=== PATIENT | male | born 1960 | race Caucasian/White ===

== ENCOUNTER 2020-06-08 10:14 | Outpatient (CLI) | payer OTHER, SELFPAY ==
--- NOTE | ~2020-06-08 | XR_ITS ---
EXAMINATION: XR chest 2V 06/08/2020 14:55 INDICATION: Bronchitis. Dyspnea. PROCEDURE: 2 view chest COMPARISON: 02/27/2014 FINDINGS: The lungs are clear. The cardiomediastinal silhouette is within normal limits. There are no pleural effusions. There is no pneumothorax suspected. IMPRESSION: 1: NO ACUTE CARDIOPULMONARY DISEASE. Reviewed, dictated and finalized at location A.
[2020-06-08 11:09] LABS: SARS-CoV-2 RNA PCR Negative (Negative)
[2020-06-08 14:45] LABS: Influenza A QL RT-PCR Negative (Negative); Influenza B QL RT-PCR Negative (Negative)
[2020-06-08 14:47] LABS: Basophils Absolute Auto 0.06 K/mm3 (0.00-0.10); Basophils Percent Auto 0.7 % (0.0-1.0); Eosinophils Absolute Auto 0.15 K/mm3 (0.02-0.50); Eosinophils Percent Auto 1.7 % (1.0-6.0); Hematocrit 43.3 % (40.0-54.0); Hemoglobin 14.7 g/dL (14.0-18.0); Immature Granulocyte Absolute 0.02 K/mm3 (0.00-0.00); Immature Granulocyte Percent A 0.2 % (0.0-0.0); Lymphocytes Absolute Auto 2.01 K/mm3 (1.10-4.50); Lymphocytes Percent Auto 22.2 % (18.0-42.0); Mean Corpuscular HGB Conc 33.9 g/dL (32.0-36.0); Mean Corpuscular Hemoglobin 32.4 pg (27.0-31.0); Mean Corpuscular Volume 95.4 fL (78.0-102.0); Mean Platelet Volume 8.9 fl (8.7-11.0); Monocytes Absolute Auto 0.88 K/mm3 (0.10-0.90); Monocytes Percent Auto 9.7 % (2.0-11.0); Neutrophils Percent Auto 65.5 % (50.0-70.0); Platelet Count Result 186 K/mm3 (150-420); Red Blood Count 4.54 M/mm3 (4.70-6.10); White Blood Count 9.1 K/mm3 (4.8-10.8)
[2020-06-08 15:02] LABS: Alanine Aminotransferase 26 U/L (16-63); Albumin Level 3.8 g/dL (3.4-5.0); Alkaline Phosphatase 92 U/L (46-116); Anion Gap 5 mmol/L (8-16); Aspartate Amino Transferase 14 U/L (15-37); Bilirubin,Total 0.5 mg/dL (0.00-1.00); Blood Urea Nitrogen 21 mg/dL (7-18); Calcium 9.3 mg/dL (8.5-10.1); Carbon Dioxide 30 mmol/L (21-32); Chloride 101 mmol/L (98-108); Estimated Glomerular Filt Rate 58; Glucose 101 mg/dL (70-99); Osmolality Calculated 285 mOsm/kg (285-295); Sodium 136 mmol/L (136-145); Total Protein 7.7 g/dL (6.4-8.2)
== END 2020-06-08 10:15 | disposition home or self-care (01) ==
PROVIDERS: PCP Internal Medicine; Visit Provider Internal Medicine
DX: J06.9 Acute upper respiratory infection, unspecified (principal); J40 Bronchitis, not specified as acute or chronic; R05 Cough; Z20.822 Contact with and (suspected) exposure to COVID-19
CPT/HCPCS: 36415; 71046; 80053; 85025; 87502; C9803; U0003; U0005

== ENCOUNTER 2020-06-15 10:46 | Outpatient (CLI) | payer OTHER, SELFPAY ==
--- NOTE | ~2020-06-15 | XR_ITS ---
EXAMINATION: XR chest 2V EXAM DATE: 06/15/2020 11:02 INDICATION: COPD- congestion, cough sob x 1 week, smoker TECHNIQUE: Frontal and lateral projections of the chest obtained and reviewed. There is no prior katherin dy for comparison. FINDINGS: The lungs are clear. There are no pleural effusions. The cardiomediastinal silhouette is within normal limits. There is no pneumothorax suspected. The bones and soft tissues are unremarkab le. IMPRESSION: No acute cardiopulmonary findings. Reviewed, dictated and finalized at location A.
== END 2020-06-15 10:47 | disposition home or self-care (01) ==
LOC: CHSIMG 10:48
PROVIDERS: PCP Internal Medicine; Visit Provider Internal Medicine
DX: J44.1 Chronic obstructive pulmonary disease with (acute) exacerbation (principal)
CPT/HCPCS: 71046

== ENCOUNTER 2020-07-05 15:37 | Outpatient (CLI) | payer OTHER, SELFPAY ==
--- NOTE | ~2020-07-05 | XR_ITS ---
XR hip RT min 2V DATE: 07/05/2020 16:19 INDICATION: Right lateral upper hip pain. Low back pain. TECHNIQUE: AP, lateral views COMPARISON: None FINDINGS: There is some chronic soft tissue calcification adjacent to the greater trochanter. There is mild right hip osteoarthritis. No fracture or dislocation, avascular necrosis or bone destruction is evident. The pubic symphysis and sacroiliac joints appear intact. IMPRESSION: Mild right hip osteoarthritis Reviewed, dictated and finalized at location B.
--- NOTE | ~2020-07-05 | XR_ITS ---
XR lumbar spine 2-3V DATE: 07/05/2020 16:19 INDICATION: Low back pain, right lateral upper hip pain TECHNIQUE: AP, lateral, coned lateral lumbosacral views COMPARISON: None FINDINGS: There is mild levoscoliosis of the thoracolumbar spine. Diffuse osteopenia. There is mild multilevel degenerative disc disease as well as moderate spurring of the lumbar spine. There is prominent degenerative change of the apophyseal joints with grade 1 anterolisthesis at L4-5. No fracture or bone destruction is detected. The lower thoracic and lumbar pedicles are intact. Normal sacroiliac joints. IMPRESSION: Mild levoscoliosis Degenerative changes Reviewed, dictated and finalized at location B.
[2020-07-05 16:44] LABS: Alanine Aminotransferase 28 U/L (16-63); Albumin Level 3.5 g/dL (3.4-5.0); Alkaline Phosphatase 81 U/L (46-116); Anion Gap 9 mmol/L (8-16); Aspartate Amino Transferase 13 U/L (15-37); Bilirubin,Total 0.3 mg/dL (0.00-1.00); Blood Urea Nitrogen 18 mg/dL (7-18); Calcium 8.9 mg/dL (8.5-10.1); Carbon Dioxide 28 mmol/L (21-32); Chloride 103 mmol/L (98-108); Cholesterol 240 mg/dL (0-200); Estimated Glomerular Filt Rate 57; Glucose 91 mg/dL (70-99); HDL Direct 55 mg/dL (40-60); LDL Cholesterol Calculated 169 mg/dL (<130); Osmolality Calculated 291 mOsm/kg (285-295); Potassium 4.3 mmol/L (3.5-5.1); Prostate Specific Antigen 1.1 ng/mL (< OR = 4.0); Sodium 140 mmol/L (136-145); Total Protein 6.7 g/dL (6.4-8.2); Triglycerides 80 mg/dL (0-150)
[2020-07-05 16:46] LABS: Hemoglobin A1C 6.3 % (<5.7)
== END 2020-07-05 15:38 | disposition home or self-care (01) ==
LOC: CHSIMG 15:39
PROVIDERS: PCP Internal Medicine; Visit Provider Internal Medicine
DX: I73.9 Peripheral vascular disease, unspecified (principal); M25.551 Pain in right hip; M54.5 Low back pain; R73.01 Impaired fasting glucose; Z00.00 Encounter for general adult medical examination without abnormal findings; E78.2 Mixed hyperlipidemia
CPT/HCPCS: 36415; 72100; 73502; 80053; 80061; 83036; 84153; G0103

== ENCOUNTER 2020-07-09 09:27 | Outpatient (CLI) | payer OTHER, SELFPAY ==
--- NOTE | ~2020-07-09 | US_ITS ---
EXAMINATION: US arterial ankle brachial ind DATE: 07/09/2020 10:00 INDICATION: Peripheral arterial occlusive disease to the lower limbs TECHNIQUE: Segmental pressures and plethysmographic and Doppler waveforms of the brachial and lower e xtremity arteries were obtained. COMPARISON: None. FINDINGS: Right and left brachial artery pressures of 123 mm Hg and 136 mm Hg, respectively, are concordant (no rmal difference <= 30 mmHg). The right ankle-brachial index (ABDULAZIZ) is 0.65 (normal >= 0.9-1.0). The right great toe-brachial index (TBI) is 0.30 (normal >= 0.65). Arterial Doppler waveforms are biphasic with brisk systolic upstrokes at both the right posterior tibial and dorsalis pedis arteries. The left ABDULAZIZ is 0.83. The left TBI is 0.45. Arterial Doppler waveforms are biphasic with brisk systol ic upstrokes at both the left posterior tibial and dorsalis pedis arteries. IMPRESSION: 1. Bilateral arterial occlusive disease with moderately decreased right and mildly decreased left ABDULAZIZ s and TBIs. Reviewed, dictated and finalized at location A. IMPRESSION: 1. Bilateral arterial occlusive disease with moderately decreased right and mil dly decreased left ABIs and TBIs.
== END 2020-07-09 09:28 | disposition home or self-care (01) ==
LOC: CHSIMG 09:28
PROVIDERS: PCP Internal Medicine; Visit Provider Internal Medicine
DX: I73.9 Peripheral vascular disease, unspecified (principal); M25.551 Pain in right hip; M54.5 Low back pain
CPT/HCPCS: 93922

== ENCOUNTER 2020-07-18 07:53 | Outpatient (CLI) | payer OTHER, SELFPAY ==
--- NOTE | ~2020-07-18 | CT_ITS ---
EXAMINATION: CT lung screening DATE: 07/18/2020 08:49 INDICATION: Personal history of tobacco use, PAD, Iliac Stenosis SMOKER SCREENING,CHRONIC COUGH TECHNIQUE: Computed tomography (CT) of the chest was performed without intravenous contrast. Addition al 3D reconstructions utilizing coronal maximum intensity projection (MIP) were performed. Automated exposure control and iterative reconstruction technique were employed. The dose-length product was 19 5.75 mGy-cm. COMPARISON: None FINDINGS: No suspicious pulmonary nodules, pneumonia, pulmonary edema or other pulmonary infiltrates. There is however diffuse mild bronchial wall thickening consistent with bronchitis. No pleural effusion. Heart size is normal. Atherosclerotic coronary artery calcific lesion. Mild aortic valve calcification. No pericardial effusion. Thoracic aorta is normal in caliber. No pathologically enlarged thoracic lymph adenopathy. Subcutaneous presternal 4.7 x 3.6 x 2.8 cm fluid attenuation likely epidermoid cyst. 1.8 x 1.2 cm low-attenuation right adrenal adenoma. Moderate thoracic spondylosis. Chronic mild anterior wedging at T6, T11 and T12. Multiple Schmorl's nodes in the mid to lower thoracic spine. IMPRESSION: 1. Lung-RADS category 1: Negative. Continue annual screening with noncontrast low-dose chest CT in 12 months. Reviewed, dictated and finalized at location A. IMPRESSION: 1. Lung-RADS category 1: Negative. Continue annual screening with noncontrast l ow-dose chest CT in 12 months.
--- NOTE | ~2020-07-18 | CT_ITS ---
EXAMINATION: CTA abd aorta runoff EXAM DATE: 07/18/2020 08:50 INDICATION: Peripheral arterial disease, iliac stenosis. History of left-sided leg artery surgery. TECHNIQUE: Spiral CTA abd aorta runoff was performed following intravenous injection of 180 mL Omnipa que 350. Axial, coronal and sagittal images were reviewed. The dose-length product (DLP) for this e xamination was 1629.33 mGy-cm. The exposure was tailored according to patient size (auto mA exposure control), and iterative reconstruction (ASIR) was used as additional dose reduction technique. Corre lation is made to recent noncontrast chest CT. FINDINGS: VASCULATURE: Mild scattered abdominal arterial sclerosis with the MARGARET, renal arteries, celiac and SMA widely patent. No abdominal aortic aneurysm or dissection. Iliac and common femoral arteries patent bilaterally. Bilateral leg varicose veins. Right side: There is completely occluded mid superficial femoral artery for approximately 8 cm segmen t, with reconstitution distally through collateralization. Anterior tibial artery is the dominant sup ply to the foot, with the posterior tibial identified as patent until the ankle where it is occluded. Peroneal identified to the ankle. Left side: Completely occluded left mid superficial femoral artery, also for about 8 cm in length wit h reconstitution distally and three-vessel runoff to the foot. INCIDENTAL FINDINGS: Small umbilical fat-containing hernia. There is right adrenal 1.9 cm adenoma, lo w density confirmed on prior noncontrast chest CT. Bilateral distal femoral metaphyseal bone infarcti ons or enchondromas. IMPRESSION: 1. Completely occluded mid superficial femoral arteries bilaterally. 2. Occluded right posterior tibial artery at the ankle. 3. Three-vessel runoff on the left. Reviewed, dictated and finalized at location B.
== END 2020-07-18 07:54 | disposition home or self-care (01) ==
LOC: CHSIMG 07:57
PROVIDERS: PCP Internal Medicine; Visit Provider Internal Medicine
DX: I73.9 Peripheral vascular disease, unspecified (principal); I77.1 Stricture of artery; Z12.2 Encounter for screening for malignant neoplasm of respiratory organs; Z87.891 Personal history of nicotine dependence
CPT/HCPCS: 71271; 75635; Q9967

== ENCOUNTER 2020-07-23 16:54 | Outpatient (RCR) | payer OTHER, SELFPAY ==
--- NOTE | 2020-07-24 07:22 | PTOPEVAL ---
Thank you for referring Olivier Munguia to [facility].? The patient is scheduled to be seen for therapy? ____x/week for ___ weeks. Please review, sign, date and return this plan of care DARIUSZ. I agree with and certify that the following plan of care is medically necessary. Referring Physician Date Admitting Provider: Attending Provider: Aneesh Spicer MD Referring Provider: *PT Outpatient Evaluation Start: 07/23/20 16:41 Freq: Status: Active Protocol: Document 07/23/20 17:00 [facility] (Rec: 07/23/20 18:11 [facility] [id number]) Evaluation Information Problem Diagnosis Lumbar stenosis/ LBP Onset 07/11/20 Additional Evaluation Detail Oswestry- 20% functional mobility impairments Subjective Information Olivier Munguia is a 59 year old Query Text:As Reported By Patient/ male who [facility] with R post hip and LBP . Started 1.5 months ago insidious onset. X-rays, sonogram, and CT scan done here. Does not know results. Sitting feels better, pain increases with walking. No reports of numbness or tingling. Reports he may have vascular disease causing the pain per his MD. Is attempting to schedule appointment soon. Prior Level of Function Comments Additional Prior Level of Function Works in inventrory control, Comments lots of kneeling; likes to take his dog, Lata, for walks. Pain Assessment Timing of Pain Assessment Timing of Pain Assessment Assessment Pain Scale Pain Scale Used Numeric (1 - 10) Self Report Pain Assessment Lower Back Reported Pain Level 2 Pain Description Dull Lowest Pain Intensity 2 Greatest Pain Intensity 7 Pain Score Pain Score 2: Self Report Interventions Used Interventions Used By Clinicians Activity or ADL's,Electrical Stimulation,Exercise,Heat Cervical and Lumbar ROM Lumbar ROM Lumbar Flexion Active [place] Query Text:Hands to: Lumbar Extension (0-40) 10 Query Text:Active in Degrees Lumbar Lateral Flexion Right (0-40) 20 Query Text:Active in Degrees Lumbar Lateral Flexion Left (0-40) 20 Query Text:Active in Degrees Lateral Rotation Right (0-45) 20 Query Text:Active in Degrees Lateral Rotation Left (0-45) 20 Query Text:Active in Degrees
--- NOTE | 2020-07-30 17:59 | PCPTNOTE ---
On 07/30/20, the student, [Ada Jerome, SPTJo ], provided care and completed [employer] documentation on this patient. I have reviewed the student's documentation and agree with the findings. Nicolette Cabrera, EXECUTIVE MEETING MANAGER
--- NOTE | 2020-07-31 09:07 | PCPTNOTE ---
On 07/31/20, the student, [Ada DEGROOT ], provided care and completed [employer] documentation on this patient. I have reviewed the student's documentation and agree with the findings.
--- NOTE | 2020-08-02 06:55 | PCPTNOTE ---
On 08/01/20, the student, [Ada Jerome, [facility] provided care and completed [place] documentation on this patient. I have reviewed the student's documentation and agree with the findings.
--- NOTE | 2020-08-13 17:38 | PCPTNOTE ---
On 08/13/20, the student, [Ada Jerome, [facility] provided care and completed [employer] documentation on this patient. I have reviewed the student's documentation and agree with the findings.
== END 2020-08-16 23:59 | disposition home or self-care (01) ==
LOC: CHSPT 16:54
PROVIDERS: PCP Internal Medicine; Visit Provider Internal Medicine
DX: M25.551 Pain in right hip (principal); M54.5 Low back pain
CPT/HCPCS: 97014; 97110; 97140; 97161; 97530; G0283

== ENCOUNTER 2022-06-18 18:28 | Outpatient (CLI) | payer OTHER, SELFPAY ==
--- NOTE | ~2022-06-18 | XR_ITS ---
Right Knee Technique: AP, lateral, and sunrise views were obtained. Clinical History: Pain Findings: No fracture or dislocation is seen. There is an intramedullary lesion with serpiginous scle rotic margins at the mid to distal femoral shaft, measuring at least 7.9 cm in length. There is mild to moderate degenerative change at the patellofemoral compartment. Medial and lateral compartments ar e preserved. Soft tissues are unremarkable. No joint effusion is seen. Impression: Moderate degenerative change at the patellofemoral compartment. Intramedullary lesion at the mid to distal femoral shaft as noted above. This is most suggestive of b one infarct. Chondroid lesion could be a potential alternative consideration. If there is felt to be pain referable to this lesion clinically, then consider MR for further evaluation. Reviewed, dictated and finalized at [facility]. Impression: Moderate degenerative change at the patellofemoral compartment. Intramedullary lesion at the mid to distal femoral shaft as noted above. This i s most suggestive of bone infarct. Chondroid lesion could be a potential altern ative consideration. If there is felt to be pain referable to this lesion clini jing, then consider MR for further evaluation.
== END 2022-06-18 18:29 | disposition home or self-care (01) ==
PROVIDERS: PCP Internal Medicine; Visit Provider Internal Medicine
DX: M25.561 Pain in right knee (principal); M89.9 Disorder of bone, unspecified
CPT/HCPCS: 73564

== ENCOUNTER 2022-06-26 14:55 | Outpatient (CLI) | payer OTHER, SELFPAY ==
--- NOTE | ~2022-06-26 | CT_ITS ---
EXAMINATION: CT lung screening DATE: 06/26/2022 15:17 INDICATION: Chronic cough. Screening for lung cancer. History of smoking. TECHNIQUE: Computed tomography (CT) of the chest was performed without intravenous contrast. The dose -length product was 217.12 mGy-cm. Automated exposure control and iterative reconstruction technique were employed. COMPARISON: CT dated 07/18/2020 FINDINGS: There is a 3.8 cm low-density mass in the presternal location of the chest wall, likely javid ign epidermoid cyst or sebaceous cyst. No thoracic lymphadenopathy. There is atherosclerosis of the a joanna and coronary arteries. Small hiatal hernia. No significant pleural or pericardial effusion. Stab le 1.8 cm right adrenal adenoma. No endobronchial lesions. Mild chronic bronchial wall thickening unc hanged, likely chronic bronchitis. No endobronchial lesions. No pneumothorax. No focal airspace conso lidation. Mild emphysema. No pneumothorax. Moderate thoracic spondylosis with multiple chronic wedge compression deformities of the mid and lower thoracic spine which appear chronic. IMPRESSION: 1. Lung-RADS category 1: Negative. Continue annual screening with noncontrast low-dose chest CT in 12 months. Reviewed, dictated and finalized at location L. IMPRESSION: 1. Lung-RADS category 1: Negative. Continue annual screening with noncontrast l ow-dose chest CT in 12 months.
== END 2022-06-26 14:56 | disposition home or self-care (01) ==
LOC: CHSIMG 14:57
PROVIDERS: PCP Internal Medicine; Visit Provider Internal Medicine
DX: Z12.2 Encounter for screening for malignant neoplasm of respiratory organs (principal); Z87.891 Personal history of nicotine dependence
CPT/HCPCS: 71271

== ENCOUNTER 2022-07-12 07:41 | Outpatient (CLI) | payer OTHER, SELFPAY ==
--- NOTE | ~2022-07-12 | MR_ITS ---
EXAMINATION: MR femur RT wo con DATE: 07/12/2022 09:38 INDICATION: Right femur and knee pain. TECHNIQUE: Magnetic resonance imaging (MRI) of the right femur was performed without intravenous cont rast. COMPARISON: Right knee radiographs 06/18/2022 FINDINGS: There is lateral subluxation of patella. In the distal femoral metadiaphysis, there is a 7. 5 cm intramedullary lesion of increased T2-weighted signal intensity surrounded by sclerosis with a s erpiginous border. No bone expansion or endosteal scalloping. There is mild right knee osteoarthritis . There is a small right knee joint effusion. There is mild prepatellar and superficial infrapatellar bursitis. The musculature is normal. IMPRESSION: 1. Intramedullary lesion in distal femoral metadiaphysis, which may be an enchondroma or osteonecrosi s. 2. Mild right knee osteoarthritis. 3. Small right knee joint effusion. Reviewed, dictated and finalized at location A. IMPRESSION: 1. Intramedullary lesion in distal femoral metadiaphysis, which may be an encho ndroma or osteonecrosis. 2. Mild right knee osteoarthritis. 3. Small right knee joint effusion.
== END 2022-07-12 07:42 | disposition home or self-care (01) ==
LOC: CHSIMG 07:45
PROVIDERS: PCP Internal Medicine; Visit Provider Internal Medicine
DX: R93.6 Abnormal findings on diagnostic imaging of limbs (principal); M89.9 Disorder of bone, unspecified; M17.11 Unilateral primary osteoarthritis, right knee; M25.461 Effusion, right knee
CPT/HCPCS: 73718

== ENCOUNTER 2022-11-26 15:45 | Outpatient (CLI) | payer OTHER, SELFPAY ==
--- NOTE | ~2022-11-26 | XR_ITS ---
EXAMINATION: XR chest 2V 11/26/2022 16:02 INDICATION: Smoker. Shortness of breath. COPD. PROCEDURE: 2 view chest COMPARISON: 06/15/2020 FINDINGS: The lungs are clear. The cardiomediastinal silhouette is within normal limits. There are no pleural effusions. There is no pneumothorax suspected. IMPRESSION: 1: NO ACUTE CARDIOPULMONARY DISEASE. Reviewed, dictated and finalized at location B.
== END 2022-11-26 15:46 | disposition home or self-care (01) ==
PROVIDERS: PCP Internal Medicine; Visit Provider Internal Medicine
DX: J44.9 Chronic obstructive pulmonary disease, unspecified (principal)
CPT/HCPCS: 71046

== ENCOUNTER 2023-12-10 09:36 | Outpatient (CLI) | payer OTHER, SELFPAY ==
[2023-12-10 10:06] LABS: Basophils Absolute Auto 0.06 K/mm3 (0.00-0.10); Basophils Percent Auto 0.9 % (0.0-1.0); Eosinophils Absolute Auto 0.07 K/mm3 (0.02-0.50); Hematocrit 43.8 % (40.0-54.0); Hemoglobin 14.9 g/dL (14.0-18.0); Immature Granulocyte Absolute 0.02 K/mm3 (0.00-0.00); Immature Granulocyte Percent A 0.3 % (0.0-0.0); Lymphocytes Absolute Auto 2.18 K/mm3 (1.10-4.50); Lymphocytes Percent Auto 31.5 % (18.0-42.0); Mean Corpuscular Hemoglobin 31.8 pg (27.0-31.0); Mean Corpuscular Volume 93.4 fL (78.0-102.0); Mean Platelet Volume 8.7 fl (8.7-11.0); Monocytes Absolute Auto 0.49 K/mm3 (0.10-0.90); Monocytes Percent Auto 7.1 % (2.0-11.0); Neutrophils Absolute Auto 4.09 K/mm3 (1.70-7.20); Neutrophils Percent Auto 59.2 % (50.0-70.0); Platelet Count Result 200 K/mm3 (150-420); Red Blood Count 4.69 M/mm3 (4.70-6.10); White Blood Count 6.9 K/mm3 (4.8-10.8)
[2023-12-10 10:11] LABS: Add Urine Microscopic? NO; Appearance Urine Clear (Clear); Bilirubin Urine Negative (Negative); Blood Urine Trace-intact (Negative); Color Urine Light Yellow (Yellow); Glucose Urine UA Negative (Negative); Ketones Urine Negative (Negative); Leukocyte Esterase Ur Negative LEU/UL (Negative); Nitrate Urine Negative (Negative); Protein Urine Negative (Negative); Urobilinogen Urine 0.2 mg/dL (0.2-1.0)
[2023-12-10 10:53] LABS: Alanine Aminotransferase 30 U/L (16-63); Albumin Level 3.5 g/dL (3.4-5.0); Alkaline Phosphatase 98 U/L (46-116); Anion Gap 9 mmol/L (4-12); Aspartate Amino Transferase 15 U/L (15-37); Bilirubin,Total 0.4 mg/dL (0.00-1.00); Blood Urea Nitrogen 16 mg/dL (7-18); Calcium 8.9 mg/dL (8.5-10.1); Carbon Dioxide 29 mmol/L (21-32); Chloride 103 mmol/L (98-108); Cholesterol 181 mg/dL (0-200); Creatine Kinase 180 U/L (39-308); Estimated Glomerular Filt Rate > 60; Glucose 133 mg/dL (70-99); HDL Direct 55 mg/dL (40-60); LDL Cholesterol Calculated 104 mg/dL (<130); Osmolality Calculated 295 mOsm/kg (285-295); Potassium 4.3 mmol/L (3.5-5.1); Prostate Specific Antigen 1.6 ng/mL (< OR = 4.0); Sodium 141 mmol/L (136-145); Total Protein 6.8 g/dL (6.4-8.2); Triglycerides 108 mg/dL (0-150)
== END 2023-12-10 09:37 | disposition home or self-care (01) ==
PROVIDERS: PCP Internal Medicine; Visit Provider Internal Medicine
DX: Z00.00 Encounter for general adult medical examination without abnormal findings (principal); Z12.5 Encounter for screening for malignant neoplasm of prostate
CPT/HCPCS: 36415; 80053; 80061; 81003; 82550; 84153; 85025; G0103

== ENCOUNTER 2023-12-16 11:16 | Outpatient (CLI) | payer OTHER, SELFPAY ==
--- NOTE | ~2023-12-16 | CT_ITS ---
CT Scan of the Chest without Contrast: Clinical Indication: Lung cancer screening, nicotine dependence Technique: Contiguous sections were acquired throughout the chest without intravenous contrast. Dose reduction technique was used on this scan by utilizing automated exposure control and iterative recon struction technique. The dose-length product (DLP) was 307.86 mGy-cm. COMPARISON: 06/26/2022 Findings: There is no evidence of any significant mediastinal, hilar or axillary lymphadenopathy. The mediastin al soft tissues appear normal. There is no evidence of pleural or pericardial effusion. The lungs are clear. No pulmonary nodules or infiltrates are noted. Images through the upper abdomen reveal stable right adrenal adenoma. Stable large probable sebaceous cyst at the anterior midline superficial to the sternum.. Impression: Lung RADS 1: Negative. 12 month follow-up screening CT advised. Reviewed, dictated and finalized at [facility]. Impression: Lung RADS 1: Negative. 12 month follow-up screening CT advised.
== END 2023-12-16 11:17 | disposition home or self-care (01) ==
LOC: CHSIMG 11:19
PROVIDERS: PCP Internal Medicine; Visit Provider Internal Medicine
DX: Z12.2 Encounter for screening for malignant neoplasm of respiratory organs (principal); Z87.891 Personal history of nicotine dependence
CPT/HCPCS: 71271

== ENCOUNTER 2024-11-27 19:49 | Emergency (ER) | payer OTHER, SELFPAY ==
--- OUTSIDE RECORDS SUMMARY | 2024-11-27 19:51 | XMS_ITS | Clinical Summary ---
Author Organization [facility] Address [address] [place] [address] Care Team Providers Care Medical Sales Name Role Phone Aneesh Spicer MD Primary Care Provider + [phone] Allergies Active Allergy Reactions Criticality Noted Date Comments Sulfamethoxazole-Trimethoprim Rash Medium 2020 Medications Spiriva with HandiHaler 18 mcg per inhalation capsule 1 Active ibuprofen (ibuprofen) 200 mg tab/cap EQ IBUPROFEN CAPSULE 7 Active atorvastatin (LIPITOR) 40 mg tablet 4 Active aspirin 81 mg enteric coated tablet Take 1 tablet (81 mg total) by mouth daily Active Active Problems Problem Noted Date Diagnosed Date Atherosclerosis of cherokee ar teries of extremities with intermittent claudication, bilateral legs 09/12/2024 Atherosclerosis of cherokee ar teries of extremities with intermittent claudication, right leg 09/07/2023 Encounters Date Type Department Care Team Description 09/12/2024 10:15 AM CDT Office Visit [facility] Medicine Surgery [facility] 8th [place] [address] [place] [id number] Nikia Starr, LUISA Atherosclerosis of cherokee arteries of extremities with intermittent claudication, bilateral legs (Primary Dx) 09/12/2024 9:30 AM CDT Ancillary Procedure [facility] Medicine Vascular Lab at the [place] [id number] [facility] 8th [place] [address] [place] [phone] Atherosclerosis of cherokee arteries of extremities with intermittent claudication, right leg from Last 3 Months Surgical History Surgery Date Site/Laterality Comments KNEE SURGERY LTKA LEG SURGERY L lower leg sx; broken bones FOOT FRACTURE SURGERY right foot sx; 3 broken toes Medical History Medical History Date Comments Arthritis Pneumonia Hypercholesteremia Family History Medical History Relation Name Comments Cancer Brother Cancer Father Heart disease Mother Relation Name Status Comments Brother Father Mother Social History Tobacco Use Types Packs/Day Years Used Date Smoking Tobacco: Every Day Tobacco Cessation:Ready to Q uit: Not Asked; Counseling Given: Not Answered Sex and Gender Information Value Date Recorded Sex Assigned at Not on file Legal Sex Male 10:49 AM CDT Gender Identity Not on file Sexual Orientation Not on file Obstetrics History Last Filed Vital Signs Vital Sign Reading Time Taken Comments Blood Pressure 185/93 09/12/2024 9:54 AM CDT Pulse 64 09/12/2024 9:54 AM CDT Temperature - - Respiratory Rate - - Oxygen Saturation 96% 09/12/2024 9:54 AM CDT Inhaled Oxygen Concentration - - Weight 108.9 kg (240 lb) 09/07/2023 10:25 AM CDT Height 172.7 cm (5' 8) 09/07/2023 10:25 AM CDT Body Mass Index 36.49 09/07/2023 10:25 AM CDT Plan of Treatment Health Maintenance Due Date Last Done Comments Colon Cancer Screening-Colonoscopy 1960 Depression Screening 1960 Hepatitis C Screening 1960 Prostate Cancer Screening-PSA 1960 DTaP/Tdap/Td Vaccine (1 - Tdap) 08/27/1971 Hepatitis B Screening 1978 Regular Well Visit/Exam 18-64 1978 Pneumococcal vaccine <65 (1 of 2 - PCV) 08/27/1979 Zoster Vaccine (1 of 2) 2010 Influenza Vaccine (#1) 2024 Procedures Procedure Name Priority Date/Time Associated Diagnosis Comments US ARTERIAL DOPPLER LOWER EXTREMITY BILATERAL Schedule Routine, Read Routine (OP Routine) 09/12/2024 9:55 AM CDT Atherosclerosis of cherokee arteries of extremities with intermittent claudication, right leg from Last 3 Months Results * US Arterial Doppler Lower Extremity Bilateral (09/12/2024 9:55 AM CDT) Anatomical Region Laterality Modality Vascular Bilateral Ultrasound 09/12/2024 9:27 AM CDT Narrative 09/12/2024 3:22 PM CDT [facility] - Department of Vascular Surgery, Vascular Laboratory [address] [place] [address] Lower Extremity Arterial Doppler Report Patient Name: OLIVIER MUNGUIA : 1960 Study Date: 09/12/2024 9:27:00 AM Gender: M Tech: Nikia Agarwal RVT Location: [facility] Provider: NIKIA STARR Quality: Adequate Order Provider: NIKIA STARR PROCEDURES: Arterial Report: Bilateral lower extremity arterial Doppler exam at rest. INDICATIONS: I70.211 Atherosclerosis of cherokee arteries of extremities with intermittent claudication, right leg. MEASUREMENTS: Right Value Units Left Value Units Rt Brachial Pressure 179 mmHg Lt Brachial Pressure 191 mmHg Rt DEVOPS CONSULTANT Pressure 127 mmHg Lt DEVOPS CONSULTANT Pressure 144 mmHg Rt DPA Pressure 103 mmHg Lt DPA Pressure 137 mmHg Rt 1st Digit Pressure 71 mmHg Lt 1st Digit Pressure 110 mmHg Rt PT ABDULAZIZ Resting 0.66 Lt PT ABDULAZIZ Resting 0.75 Rt AT ABDULAZIZ Resting 0.54 Lt AT ABDULAZIZ Resting 0.72 Rt Digit/Arm Index 0.37 Lt Digit/Arm Index 0.58 Right Value Units Left Value Units FINDINGS: Performing Drop Wire Operator: Nikia Agarwal RVT. Right Common Femoral Artery Analysis: The common femoral artery waveform is multiphasic. Right Popliteal Artery Analysis: The popliteal waveform is monophasic. Right Posterior Tibial Artery Analysis: The posterior tibial waveform is monophasic. Right Anterior Tibial Artery Analysis: The anterior tibial waveform is monophasic. Right Digits: The right digit waveform is dampened. Left Common Femoral Artery Analysis: The common femoral artery waveform is multiphasic. Left Popliteal Artery Analysis: The popliteal waveform is monophasic. Left Posterior Tibial Artery Analysis: The posterior tibial waveform is monophasic. Left Anterior Tibial Artery Analysis: The anterior tibial waveform is monophasic. Left Digits: The left digit waveform is dampened. CONCLUSIONS: 1. The above listed Ankle/Brachial Indicies at rest are consistent with moderate peripheral arterial disease - claudication, bilaterally (for reference, claudication range is 0.50 -0.89). 2. Bilateral Digit/Arm Indices are abnormal (for reference, abnormal JENNIFER is <0.6). 3. There is evidence of arterial insufficiency bilaterally at the level of femoral-popliteal arteries. HISTORY: Bilateral hip claudication at 1 block. PREVIOUS STUDIES: Previous study on 09/07/23- R-0.58 L-0.80. DISCLAIMER: The study images and the final report will be retained in the patient chart by the Vascular Laboratory for the legally required time period. This chart constitutes the legal record of any testing performed. ATTESTATION: I have reviewed and interpreted the pertinent images and measurements of this study. I attest to the conclusions in the final report that is provided above. Electronically Signed By: Raymundo Rice MD FACS 09/12/2024 3:04:45 PM CDT Procedure Note Raymundo Rice MD - 09/12/2024 [facility] - Department of Vascular Surgery,Vascular Laboratory [address] [place] [address] Lower Extremity Arterial Doppler Report Patient Name: OLIVIER MUNGUIA : 1960 Study Date: 09/12/2024 9:27:00 AM Gender: M Tech: Nikia Agarwal [facility] Location: [facility] Ref Provider: NIKIA STARR Quality: Adequate Order Provider: NIKIA STARR PROCEDURES: Arterial Report: Bilateral lower extremity arterial Doppler exam at rest. INDICATIONS: I70.211 Atherosclerosis of cherokee arteries of extremities withintermittent claudication, right leg. MEASUREMENTS: Right Value Units Left Value Units Rt Brachial Pressure 179 mmHg Lt Brachial Pressure 191 mmHg Rt DEVOPS CONSULTANT Pressure 127 mmHg Lt DEVOPS CONSULTANT Pressure 144 mmHg Rt DPA Pressure 103 mmHg Lt DPA Pressure 137 mmHg Rt 1st Digit Pressure 71 mmHg Lt 1st Digit Pressure 110 mmHg Rt PT ABDULAZIZ Resting 0.66 Lt PT ABDULAZIZ Resting 0.75 Rt AT ABDULAZIZ Resting 0.54 Lt AT ABDULAZIZ Resting 0.72 Rt Digit/Arm Index 0.37 Lt Digit/Arm Index 0.58 Right Value Units Left Value Units FINDINGS: Performing Drop Wire Operator: Nikia Agarwal RVT. Right Common Femoral Artery Analysis: The common femoral artery waveform is multiphasic. Right Popliteal Artery Analysis: The popliteal waveform is monophasic. Right Posterior Tibial Artery Analysis: The posterior tibial waveform is monophasic. Right Anterior Tibial Artery Analysis: The anterior tibial waveform is monophasic. Right Digits: The right digit waveform is dampened. Left Common Femoral Artery Analysis: The common femoral artery waveform is multiphasic. Left Popliteal Artery Analysis: The popliteal waveform is monophasic. Left Posterior Tibial Artery Analysis: The posterior tibial waveform is monophasic. Left Anterior Tibial Artery Analysis: The anterior tibial waveform is monophasic. Left Digits: The left digit waveform is dampened. CONCLUSIONS: 1. The above listed Ankle/Brachial Indicies at rest are consistent withmoderate peripheral arterial disease - claudication, bilaterally (for reference,claudication range is 0.50 -0.89). 2. Bilateral Digit/Arm Indices are abnormal (for reference, abnormal DAIis <0.6). 3. There is evidence of arterial insufficiency bilaterally at the level of femoral-popliteal arteries. HISTORY: Bilateral hip claudication at 1 block. PREVIOUS STUDIES: Previous study on 09/07/23- R-0.58 L-0.80. DISCLAIMER: The study images and the final report will be retained in the patientchart by the Vascular Laboratory for the legally required time period. This chartconstitutes the legal record of any testing performed. ATTESTATION: I have reviewed and interpreted the pertinent images and measurements ofthis study. I attest to the conclusions in the final report that is provided above. Electronically Signed By: Raymundo Rice MD [facility] 09/12/2024 3:04:45 PM CDT Nikia Starr NP [facility] PROCED[facility] Final Result from Last 3 Months Insurance [facility] CHOICE PLUS [employer] Care Teams Medical Sales Relationship Specialty Start Date End Date Aneesh Spicer MD [address] [place] [address] PCP - General 10/23/16
--- OUTSIDE RECORDS SUMMARY | 2024-11-27 19:51 | XMS_ITS | Patient Health Record ---
Author Organization [facility] Address [address] [place], [place] [id number] Care Team Providers Care Dice Person Name Role Phone CORINE MCALLISTER Unavailable [phone] Aneesh Spicer Unavailable Unavailable Reason For Referral No Information Plan Of Treatment No Information Insurance Providers Payer Name Payer Address Payer Phone Subscriber Number Group Number Insured Name Patient Relationship to Insured Coverage Start Date Coverage End Date NINA Ervin / LUDIVINA [address] [place] [id number] MIKAELA MACKEY Self - patient is the insured
[2024-11-27 19:52] VITALS: BP 130/72; PULSE 94; RESP 16; TEMP 36.1; O2SAT 94
--- NOTE | 2024-11-27 20:20 | ED_ITS ---
HPI - General Adult General Chief complaint: Wound/Laceration Stated complaint: Rt leg laceration Time Seen by Provider: 11/27/24 19:52 History of Present Illness HPI narrative: Olivier is a previously healthy 64M that presented to the ED with a skin tear on his RLE from sheet metal. It originally had a lot of bleeding but has since stopped. He has not had a tetanus shot in 20+ years. He has no other concerns. Related Data Allergies Allergy/AdvReac Type Severity Reaction Status Date / Time ranitidine Allergy Unknown RASH Verified 12/02/17 07:17 Review of Systems Review of Systems: All systems reviewed & are unremarkable except as noted in HPI and below Exam Const: General: cooperative, healthy appearing, comfortable, no acute distress, well developed, alert, awake and Physically active Orientation/consciousness: oriented to person, oriented to place and oriented to time HENMT: Head: normal to inspection, normocephalic and atraumatic Ears: hearing grossly normal bilaterally and external ears normal Face/Nose/Sinus: Normal external nose present Eyes: General: appearance normal, both eyes and all related structures Periorbital: periorbital findings normal Sclera: sclerae normal Pupils: Equal, round and reactive pupils present Neck: Neck: normal visual inspection Chest: Chest palpation & inspection: normal inspection of the chest Resp: Effort & Inspection: normal respiratory effort, able to speak in comp lete sentences and no respiratory distress Cardio: Jugular venous distension: no JVD Skin: General skin exam: normal color and no rashes or lesions noted Other: elliptical skin tear in the right lower extremity Neuro: General: oriented to person, oriented to place and oriented to time Cranial nerves: Yes Equal, round and reactive pupils present Extrem: General: normal to inspection Course Course Emergency Course: Wound cleaned, irrigated and explored. Padded bandage was placed over the skin tear. Tdap given. Vital Signs Vital signs: Vital Signs Temperature 97.0 F L 11/27/24 19:52 Pulse Rate 94 11/27/24 19:52 Respiratory Rate 16 11/27/24 19:52 Blood Pressure 130/72 11/27/24 19:52 Pulse Oximetry 94 11/27/24 19:52 Oxygen Delivery Room Air 11/27/24 19:52 Temperature 97.0 F L 11/27/24 19:52 Pulse Rate 94 11/27/24 19:52 Respiratory Rate 16 11/27/24 19:52 Blood Pressure 130/72 11/27/24 19:52 Pulse Oximetry 94 11/27/24 19:52 Oxygen Delivery Room Air 11/27/24 19:52 Medical Decision Making Vital Signs Vital Signs: Vital Signs Temperature 97.0 F L 11/27/24 19:52 Pulse Rate 94 11/27/24 19:52 Respiratory Rate 16 11/27/24 19:52 Blood Pressure 130/72 11/27/24 19:52 Pulse Oximetry 94 11/27/24 19:52 Oxygen Delivery Room Air 11/27/24 19:52 Temperature 97.0 F L 11/27/24 19:52 Pulse Rate 94 11/27/24 19:52 Respiratory Rate 16 11/27/24 19:52 Blood Pressure 130/72 11/27/24 19:52 Pulse Oximetry 94 11/27/24 19:52 Oxygen Delivery Room Air 11/27/24 19:52 Discharge Plan Discharge Clinical Impression: Skin tear of left lower leg without complication Patient Disposition: Home Condition: Stable Instructions: Antibiotic Form Patient Language: Colombian Follow-up/Referrals: Aneesh Spicer MD [Primary Care Provider, Internal Medicine] Stand Alone Forms: Work/School Release IP
[2024-11-27] MEDS: TETANUS,DIPHTHERIA,AC PERTUSSIS ADULT 0.5 ML (ADACEL) IM (20:41)
[2024-11-27 20:59] VITALS: BP 144/75; PULSE 80; RESP 16; O2SAT 97
== END 2024-11-27 20:59 | disposition home or self-care (01) ==
LOC: CHSED 20:39
PROVIDERS: Emergency Provider Family Medicine; PCP Internal Medicine
DX: S81.811A Laceration without foreign body, right lower leg, initial encounter (principal); W45.8XXA Other foreign body or object entering through skin, initial encounter; Z23 Encounter for immunization
CPT/HCPCS: 90471; 90715; 99282

== ENCOUNTER 2024-12-03 09:31 | Outpatient (CLI) | payer OTHER, SELFPAY ==
--- OUTSIDE RECORDS SUMMARY | 2017-04-10 04:21 | XMS_ITS | Continuity of Care Document ---
Author Organization [facility] Address [address] [place] [id number] Phone Care Team Providers Care Cryptologic Supervisor Name Role Phone Nathan Sagastume OD Unavailable Unavailab le Allergies, Adverse Reactions, Alerts Substance Reaction Status Criticality No Known Allergies Active No Inform ation Procedures Procedure Date OPTH IMG RET POSTOP FOLLOW-UP VISIT POSTOP FOLLOW-UP VISIT POSTOP FOLLOW-UP VISIT Advance Directives Directive Yes / No Effective Date File Name No Information Encounters Encounter Description Practice Location Reason(s) For Visit Diagnoses Date Provider Providers Copied on Encounter [facility], [address] [place] [address], [id number], tel:[phone] [facility] No Information Tanika Evans. [address] [place] [address], [id number], [place]. tel:[phone] [facility], [address] [place] [address], [id number], [place] tel:[phone] [facility] 2 Physician Directed Follow up (chief complaint) Puckering of macula, left eyePresence of pseudophakia Hariprasad Seenu. [address] [place] [address], [id number], [place]. tel:[phone] [facility], [address] [place] [address], [id number], [place] tel:[phone] [facility] Post-Op Exam Visit for (chief complaint) Puckering of macula, left eye Hariprasad Seenu. [address] [place] [address], [id number], [place]. tel:[phone] [facility], [address] [place] [address], [id number], tel:[phone] [facility] Physician Directed Follow up (chief complaint) Puckering of macula, left eye Golden Seenu. [address] [place] [address], [id number], [place]. tel:[phone] [facility], [address] [place] [address], [id number], [place] tel:[phone] [facility] Post-Op Exam Visit for (chief complaint) Puckering of macula, left eye Golden Seenu. [address] [place] [address], [id number], [place]. tel:[phone] Family History Family Member Type Diagnosis Age At Onset Mother Problem (finding) No history of Glaucoma Mother Problem (finding) No history of Diabetes mellitus Father Problem (finding) No history of Glaucoma Father Problem (finding) No history of Diabetes mellitus Payers Payer name Insurance type Covered alliance party ID Authoriza tion(s) No Information Social History Type Description Quantity Date Captured Comments Sex Male Smoking Status No Information Chief Complaint And Reason For Visit No Information Reason For Referral Reason For Referral No Information Plan Of Treatment Date Type Action Status Future Order: Radiology Order [id number] ([id number]), Appointment on: , Sent on: Sent History Of Present Illness Encounter Date Complaint History Of Prese nt Illness Physician Directed Follow up The 56 year old male presents for Physician Directed Follow up. Pt had surgery for ERM OS 06/2016, and OD 2014. Pt has noticed a film over his eyes OU, which he had in the eyes after his first ERM surgery and had corrected with laser. Pt has no other visual complaints. Pt has h/o EOM surgery, and surgery for retinal detachment OS 2012 and OD 2013, and PRP OS. LME: 1 month, unremarkableLEE: august post op Post-Op Exam Visit for The 56 ye ar old male presents for an 11 week post-op exam for ERM OS. H/O PPV/MP on 06/18/2016. Patient is almost done with eye drops (pink cap). He reports improvement in vision, however reports letters move in vision. Also mentions he is beginning to see stereo (decrease in diplopia) and primary colors. SHWETHA: 06/26/[address] Franks; 04/2016 outside [facility] (+)glassesLME: 08/2016; (+)DM, sees PCP q3mo; reports good levels, does not recall sugar or A1C levels Physician Directed Follow up The 55 year old male presents for Physician Directed Follow up for PPV for ERM OS performed on 06/18/2016. Vision improving OS, but patient believes stitch is busting. No pain or irritation, just looks weird. Noticing primary colors after surgery. Has been using cyclopentolate twice per day and prednisolone and vigamox four times per day. Post-Op Exam Visit for The 55 ye ar old male presents for Post-Op Exam Visit for Functional Status Date Functional Assessmen t No Information Instructions Date Instruction Additional Infor shelley Follow up - 1 year, sooner prn R elated to Puckering of macula, left eye Impression/Plan - s/ p 23g PPV/MP os for erm 2016 and s/p 23g PPV/MP od for TRD 2014. Looks great! vision limited OS due to ischemia. No further intervention OS. Related to Puckering of macula, left eye Impression/Plan - Ne w specs. Monocular precautions. Related to Presence of pseudophakia 4 mos, sooner prn Related to Puc kering of macula, left eye Follow up - 4 mos, sooner prn Re lated to Puckering of macula, left eye Impression/Plan - 11 week s/p 23g PPV/MP os for erm. Looks great! d/cgtts in operated eye. Post op instructions reviewed in GREAT DETAIL. Related to Puckering of macula, left eye 6 weeks, sooner prn Related to P uckering of macula, left eye Follow up - 6 weeks, sooner prn Related to Puckering of macula, left eye Impression/Plan - 1 week s/p 23g PPV/MP os for erm. Looks great! d/c Vigamox QID, d/c Hyosine BID, and taper PF QID in operated eye. Post op instructions reviewed in GREAT DETAIL. Related to Puckering of macula, left eye 1 week, sooner prn 8am post op R elated to Puckering of macula, left eye Impression/Plan - 1 day s/p 23g PPV/MP os for erm. Looks great! Vigamox QID, Hyosine BID, and PF QID in operated eye. Post op instructions reviewed in GREAT DETAIL. Related to Puckering of macula, left eye Follow up - 1 week, sooner prn 8am post op Related to Puckering of macula, left eye Assessments Type Assessment Date No Information Patient Care Teams Name Effective Dates (start - stop) Status Members No Information
--- OUTSIDE RECORDS SUMMARY | 2024-12-03 09:35 | XMS_ITS | Patient Health Record ---
Author Organization [facility] Address [address] [place], [place] [id number] Care Team Providers Care Acetylene Torch Solderer Name Role Phone CORINE MCALLISTER Unavailable [phone] Aneesh Spicer Unavailable Unavailable Reason For Referral No Information Plan Of Treatment No Information Insurance Providers Payer Name Payer Address Payer Phone Subscriber Number Group Number Insured Name Patient Relationship to Insured Coverage Start Date Coverage End Date NINA Ervin / LUDIVINA [address] [place] [id number] MIKAELA MACKEY Self - patient is the insured
--- OUTSIDE RECORDS SUMMARY | 2024-12-03 09:35 | XMS_ITS | Clinical Summary ---
Author Organization [facility] Address [address] [place] [address] Care Team Providers Care Inspector Circuitry Negative Name Role Phone Aneesh Spicer MD Primary Care Provider + [phone] Allergies Active Allergy Reactions Criticality Noted Date [...] Problem Noted Date Diagnosed Date Atherosclerosis of [place] ar teries of extremities with intermittent claudication, bilateral legs 09/12/2024 Atherosclerosis of [place] ar teries of extremities with intermittent claudication, right leg 09/07/2023 Encounters Date Type Department Care Team Description 09/12/2024 10:15 AM CDT Office Visit [facility] Medicine Surgery [facility] [place] [facility] 8th [place] [address] [place] [phone] Nikia Starr, LUISA Atherosclerosis of [place] arteries of extremities with intermittent claudication, bilateral legs (Primary Dx) 09/12/2024 9:30 AM CDT Ancillary Procedure [facility] Medicine Vascular Lab at the [place] [address] [facility] 8th [place] [address] [place] [phone] Atherosclerosis of [place] arteries of extremities with intermittent claudication, right [...] Routine) 09/12/2024 9:55 AM CDT Atherosclerosis of [place] arteries of extremities with intermittent claudication, right leg from Last 3 Months Results * US Arterial Doppler Lower Extremity Bilateral (09/12/2024 9:55 AM CDT) Anatomical Region Laterality Modality Vascular Bilateral Ultrasound 09/12/2024 9:27 AM CDT Narrative 09/12/2024 3:22 PM CDT [facility] - Department of Vascular Surgery, Vascular Laboratory [address] [place] [address] Lower Extremity Arterial Doppler Report Patient Name: OLIVIER MUNGUIA : 1960 Study Date: 09/12/2024 9:27:00 AM Gender: M Tech: Nikia Agarwal RVT Location: [facility] Provider: NIKIA STARR Quality: Adequate Order Provider: NIKIA STARR PROCEDURES: Arterial Report: Bilateral lower extremity arterial Doppler exam at rest. INDICATIONS: I70.211 Atherosclerosis of [place] arteries of extremities with intermittent claudication, right leg. MEASUREMENTS: Right Value Units Left Value Units Rt Brachial Pressure 179 mmHg Lt Brachial Pressure 191 mmHg Rt SUPERVISOR LIQUID YEAST Pressure 127 mmHg Lt SUPERVISOR LIQUID YEAST Pressure 144 mmHg Rt DPA Pressure 103 mmHg Lt DPA Pressure 137 mmHg Rt 1st Digit Pressure 71 mmHg Lt 1st Digit Pressure 110 mmHg Rt PT ABDULAZIZ Resting 0.66 Lt PT ABDULAZIZ Resting 0.75 Rt AT ABDULAZIZ Resting 0.54 Lt AT ABDULAZIZ Resting 0.72 Rt Digit/Arm Index 0.37 Lt Digit/Arm Index 0.58 Right Value Units Left Value Units FINDINGS: Performing Paint Roller Cover Machine Setter: Nikia Agarwal RVT. Right Common Femoral Artery [...] Procedure Note Raymundo Rice MD - 09/12/2024 [facility] - Department of Vascular Surgery,Vascular Laboratory [address] [place] [address] Lower Extremity Arterial Doppler Report Patient Name: OLIVIER MUNGUIA : 1960 Study Date: 09/12/2024 9:27:00 AM Gender: M Tech: Nikia Agarwal [facility] Location: [facility] Ref Provider: NIKIA STARR Quality: Adequate Order Provider: NIKIA STARR PROCEDURES: Arterial Report: Bilateral lower extremity arterial Doppler exam at rest. INDICATIONS: I70.211 Atherosclerosis of [place] arteries of extremities withintermittent claudication, right leg. MEASUREMENTS: Right Value Units Left Value Units Rt Brachial Pressure 179 mmHg Lt Brachial Pressure 191 mmHg Rt SUPERVISOR LIQUID YEAST Pressure 127 mmHg Lt SUPERVISOR LIQUID YEAST Pressure 144 mmHg Rt DPA Pressure 103 mmHg Lt DPA Pressure 137 mmHg Rt 1st Digit Pressure 71 mmHg Lt 1st Digit Pressure 110 mmHg Rt PT ABDULAZIZ Resting 0.66 Lt PT ABDULAZIZ Resting 0.75 Rt AT ABDULAZIZ Resting 0.54 Lt AT ABDULAZIZ Resting 0.72 Rt Digit/Arm Index 0.37 Lt Digit/Arm Index 0.58 Right Value Units Left Value Units FINDINGS: Performing Paint Roller Cover Machine Setter: Nikia Agarwal RVT. Right Common Femoral Artery [...] above. Electronically Signed By: Raymundo Rice MD [facility] 09/12/2024 3:04:45 PM CDT Nikia Starr NP [facility] PROCEDURES Final Result from Last 3 Months Insurance [facility] CHOICE PLUS [facility] HMO/PPO Address: [facility] [address] [place] [address] [employer] Care Teams Inspector Circuitry Negative Relationship Specialty Start Date End Date Aneesh Spicer MD [address] [place] [address] PCP - General 10/23/16
--- OUTSIDE RECORDS SUMMARY | 2024-12-03 09:35 | XMS_ITS | Clinical Summary ---
Author Organization [facility] Address [address] [place] [address] Care Team Providers Care Extension Agent Name Role Phone Unavailable Primary Care Provider Unavailabl e Social History Tobacco Use Types Packs/Day Years Used Date Smoking Tobacco: Never Assessed Sex and Gender Information Value Date Recorded Sex Assigned at Not on file Legal Sex Male 11:34 PM ORACLE DATABASE ANALYST Gender Identity Not on file Sexual Orientation Not on file Plan of Treatment Health Maintenance Due Date Last Done Comments Colorectal Cancer Screening Colonoscopy (10 Years) 1960 Annual Physical 08/27/1963 Hepatitis C 1978 DTaP, Tdap and Td Vaccines ( 1 - Tdap) 08/27/1979 Pneumococcal Vaccine: 50+ Ye ars (1 of 1 - PCV) 2010 Zoster Vaccines (1 of 2) 2010 COVID-19 Vaccine (1 - 2023-2 5 season) 2024 Influenza Adult (#1) 2024 RSV Immunization or 60+ Years (1 - 1-dose 75+ series) 08/27/2035 Meningococcal B Vaccine Aged Out No l onger eligible based on patient's age to complete this topic Meningococcal Vaccine Aged Out No moon israel eligible based on patient's age to complete this topic RSV Immunizations Under 20 Months Aged Out No longer eligible based on patient's age to complete this topic
[2024-12-03 10:02] LABS: Hematocrit 36.7 % (40.0-54.0); Hemoglobin 12.5 g/dL (14.0-18.0); Immature Granulocyte Percent A 0.4 % (0.0-0.0); Lymphocytes Absolute Auto 2.21 K/mm3 (1.10-4.50); Mean Corpuscular HGB Conc 34.1 g/dL (32-36); Mean Corpuscular Hemoglobin 32.6 pg (27.0-31.0); Mean Corpuscular Volume 95.6 fL (78.0-102.0); Nucleated Red Blood Cells Absolute Auto 0.00 K/mm3 (0.00-0.00); Nucleated Red Blood Cells Perc 0.0 % (0-0.0); Platelet Count Result 181 K/mm3 (150-420); Red Blood Count 3.84 M/mm3 (4.70-6.10); White Blood Count 7.6 K/mm3 (4.8-10.8)
[2024-12-03 11:26] LABS: Add Urine Microscopic? NO; Appearance Urine Clear (Clear); Glucose Urine UA Negative (Negative); Leukocyte Esterase Ur Negative LEU/UL (Negative); Nitrate Urine Negative (Negative); Specific Grav Ur 1.015 (1.010-1.020)
[2024-12-03 12:33] LABS: Alanine Aminotransferase 24 U/L (6-50); Albumin Level 3.8 g/dL (3.5-5.1); Alkaline Phosphatase 78 U/L (38-126); Anion Gap 6 mmol/L (4-12); Aspartate Amino Transferase 22 U/L (17-59); Bilirubin,Total 0.3 mg/dL (0.2-1.3); Blood Urea Nitrogen 23 mg/dL (9-20); Calcium 9.1 mg/dL (8.4-10.2); Carbon Dioxide 29 mmol/L (22-30); Chloride 107 mmol/L (98-107); Cholesterol 168 mg/dL (0-200); Estimated Glomerular Filt Rate > 60; Glucose 119 mg/dL (65-110); HDL Direct 62 mg/dL; Osmolality Calculated 298 mOsm/kg (285-295); Potassium 4.6 mmol/L (3.4-5.0); Sodium 142 mmol/L (137-145); Total Protein 6.6 g/dL (6.3-8.2); Triglycerides 130 mg/dL (<150)
[2024-12-03 13:02] LABS: Prostate Specific Antigen 2.1 ng/mL (< OR = 4.0)
== END 2024-12-03 09:32 | disposition home or self-care (01) ==
LOC: CHSLAB 09:33
PROVIDERS: PCP Internal Medicine; Visit Provider Internal Medicine
DX: N39.0 Urinary tract infection, site not specified (principal); E78.2 Mixed hyperlipidemia; R73.01 Impaired fasting glucose
CPT/HCPCS: 36415; 80053; 80061; 81003; 84153; 85025; G0103

== ENCOUNTER 2025-01-05 16:17 | Outpatient (CLI) | payer OTHER, SELFPAY ==
--- NOTE | ~2025-01-05 | CT_ITS ---
EXAMINATION: CT lung screening DATE: 01/05/2025 16:31 INDICATION: Hx of nicotine dependence TECHNIQUE: Computed tomography (CT) of the chest was performed without intravenous contrast. Additional 3D reconstructions utilizing coronal maximum intensity projection (MIP) were performed. Automated exposure control and iterative reconstruction technique were employed. The dose-length product was 17 9.55 mGy-cm. COMPARISON: 12/16/2023 FINDINGS: Mild paraseptal emphysema at the left upper lobe. No suspicious pulmonary nodules, pneumonia, pulmonary edema or pleural effusion. Heart size is normal. Atherosclerotic coronary artery calcific location. No pericardial effusion. Thoracic aorta is normal in caliber. No pathologically enlarged thoracic l ymphadenopathy. No significant interval change in a currently 5.3 x 4.0 x 2.8 cm low-density likely epidermoid/sebaceous cyst the subcutaneous fat overlying the inferior sternum. Visualized upper abdomen is unremarkable. Moderate to severe thoracic spondylosis with chronic mild anterior wedging at T6, T11 and T12. IMPRESSION: 1. Lung-RADS category 1: Negative. Continue annual screening with noncontrast low-dose chest CT in 12 months. Reviewed, dictated and finalized at location A. [employer] IMPRESSION: 1. Lung-RADS category 1: Negative. Continue annual screening with noncontrast l ow-dose chest CT in 12 months.
--- OUTSIDE RECORDS SUMMARY | 2025-01-05 18:16 | XMS_ITS | Clinical Summary ---
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 Gender Identity Not on file Sexual Orientation [...] of 2) 2010 COVID-19 Vaccine (1 - 2024-2 6 season) 2024 Influenza Adult (#1) 2024 RSV Immunization or 60+ Years (1 - 1-dose 75+ series) 08/27/2035 Hepatitis A Vaccines Aged Out No long er eligible based on patient's age to complete this topic Meningococcal B Vaccine Aged Out No l onger eligible based on patient's age to complete this topic Meningococcal Vaccine Aged Out No moon israel eligible based on patient's age to complete this topic RSV Immunizations Under 20 Months Aged Out No longer eligible based on patient's age to complete this topic
--- OUTSIDE RECORDS SUMMARY | 2025-01-05 18:16 | XMS_ITS | Clinical Summary ---
Author Organization [facility] Building [facility] Address [address] [place] [address] Care Team Providers Care Horse Rancher Name Role Phone Aneesh Spicer MD Primary Care Provider + [phone] Allergies Active Allergy Reactions Criticality Noted Date [...] Problem Noted Date Diagnosed Date Atherosclerosis of [place] ar teries of extremities with intermittent claudication, bilateral legs 09/12/2024 Atherosclerosis of solomon ar teries of extremities with intermittent claudication, right leg 09/07/2023 Surgical History Surgery Date Site/Laterality Comments KNEE [...] on file Sexual Orientation Not on file Last Filed Vital Signs Vital Sign Reading [...] of 2) 2010 Influenza Vaccine (#1) [id number] [place] [address] CHOICE PLUS [employer] Care Teams Horse Rancher Relationship Specialty Start Date End Date Aneesh Spicer MD [address] [place] [address] PCP - General 10/23/16
--- OUTSIDE RECORDS SUMMARY | 2025-01-05 18:16 | XMS_ITS | Patient Health Record ---
Author Organization [facility] Address [address] [place], [place] [id number] Care Team Providers Care Perforator Name Role Phone CORINE MCALLISTER Unavailable [phone] Aneesh Spicer Unavailable Unavailable Reason For Referral No Information Social History Social History Additional Details Category Social Info Options Details Migrated Social History Migrated Social History History of tobacco use : Current everyday tobacco user , Smoking Status : Current everyday tobacco user , Alcohol intake : Plan Of Treatment No Information Insurance Providers Payer Name Payer Address Payer Phone Subscriber Number Group Number Insured Name Patient Relationship to Insured Coverage Start Date Coverage End Date [place] / UHIS [id number] MIKAELA MACKEY Self - patient is the insured
== END 2025-01-05 16:18 | disposition home or self-care (01) ==
LOC: CHSIMG 16:18
PROVIDERS: PCP Internal Medicine; Visit Provider Internal Medicine
DX: Z12.2 Encounter for screening for malignant neoplasm of respiratory organs (principal); Z87.891 Personal history of nicotine dependence
CPT/HCPCS: 71271